=== PATIENT | female | born 1990 | race American Indian/Alaskan Native ===

== ENCOUNTER 2021-11-19 22:08 | Emergency (ER) | payer SELFPAY ==
[2021-11-20] MEDS ORDERED: ZIPRASIDONE MESYLATE 20 MG VIAL IM STA (01:09)
[2021-11-20] MEDS ORDERED: LORazepam 2 MG/ML VIAL IM STA (01:10)
--- NOTE | 2021-11-20 01:14 | Emergency Department Report ---
ED General Adult HPI - General Chief complaint: Psych Stated complaint: ADAM EVAL Time Seen by Provider: 11/20/21 00:10 Source: patient Mode of arrival: Stretcher Limitations: No Limitations - History of Present Illness Initial comments: patient presents 2/[address] [place] [address] [place] talking to herself. Patient refusing to answer any questions here. Patient is combative and refusing lab draws and tests. Unable to obtain any further history @ this time. Unclear if patient has a known hx of psych disorder. - Related Data Allergies Allergy/AdvReac Type Severity Reaction Status Date / Time No Known Allergies Allergy Unverified 11/19/21 23:01 ED Review of Systems ROS: Stated complaint: MH EVAL Other details as noted in HPI Comment: All other systems reviewed and negative Constitutional: denies: see rufino [facility] ED Past Medical Hx - Past Medical History Previous Medical History?: Yes Hx Psychiatric Treatment: Yes Additional medical history: Chronic Pain Left hand - Surgical History Past Surgical History?: Yes Additional Surgical History: Left hand - Social History Smoking Status: Current Every Day Smoker Substance Use Type: None ED Physical Exam - General Limitations: No Limitations General appearance: alert, in no apparent distress - Head Head exam: Present: atraumatic, normocephalic - Eye Eye exam: Present: PERRL, EOMI - ENT ENT exam: Present: mucous membranes moist, other (airway patent) - Neck Neck exam: Present: other (supple; no JVD) - Respiratory Respiratory exam: Present: other (good air entry, nml I:E, CTAB, no use of TRACE) - Cardiovascular Cardiovascular Exam: Present: regular rate. Absent: rubs, gallop - GI/Abdominal GI/Abdominal exam: Present: soft, normal bowel sounds. Absent: distended - Extremities Exam Extremities exam: Present: full ROM. Absent: tenderness - Back Exam Back exam: Present: normal inspection, full ROM - Neurological Exam Neurological exam: Present: alert, other (no gross CN palsies; moviung all extremities equally) - Psychiatric Psychiatric exam: Present: other (animated affect; not answering questions) - Skin Skin exam: Present: normal color. Absent: rash ED Course Vital Signs 11/19/21 11/19/21 11/20/21 22:47 22:52 02:03 Temperature 98.5 F 98 F 98.5 F Pulse Rate 114 H 90 114 H Respiratory 18 18 18 Rate Blood Pressure 128/68 Blood Pressure 117/84 112/73 [Right] O2 Sat by Pulse 97 100 100 Oximetry ED Medical Decision Making - Lab Data Result diagrams: 11/20/21 03:28 11/20/21 03:28 Laboratory Tests 11/20/21 11/20/21 11/20/21 03:28 03:28 03:28 WBC RBC Hgb Hct MCV MCH MCHC RDW Plt Count Lymph % (Auto) [place] % (Auto) Eos % (Auto) Baso % (Auto) Lymph # (Auto) [place] # (Auto) Eos # (Auto) Baso # (Auto) Seg Neutrophils % Seg Neutrophils # Sodium Potassium Chloride Carbon Dioxide Anion Gap BUN Creatinine Estimated GFR BUN/Creatinine Ratio Glucose Calcium Total Bilirubin AST ALT Alkaline Phosphatase Total Protein Albumin Albumin/Globulin Ratio HCG, Qual Salicylates < 0.3 L Acetaminophen 5.0 L Plasma/Serum Alcohol < 0.01 11/20/21 11/20/21 11/20/21 03:28 03:28 03:28 WBC 7.4 RBC 3.32 L Hgb 10.9 Hct 33.0 MCV 99 H MCH 33 H MCHC 33 RDW 13.3 Plt Count 280 Lymph % (Auto) 17.0 [place] % (Auto) 12.4 H Eos % (Auto) 0.1 Baso % (Auto) 0.4 Lymph # (Auto) 1.3 [place] # (Auto) 0.9 H Eos # (Auto) 0.0 Baso # (Auto) 0.0 Seg Neutrophils % 70.1 H Seg Neutrophils # 5.2 Sodium 137 Potassium 3.4 L Chloride 105.1 Carbon Dioxide 14 L Anion Gap 21 BUN 6 L Creatinine 0.5 L Estimated GFR > 60 BUN/Creatinine Ratio 12 Glucose 74 Calcium 8.5 Total Bilirubin 0.30 AST 57 H ALT 25 Alkaline Phosphatase 63 Total Protein 6.7 Albumin 3.9 Albumin/Globulin Ratio 1.4 HCG, Qual Negative Salicylates Acetaminophen Plasma/Serum Alcohol EK, SR, nml AK, narrow QRS, no significant ST changes in contiguous leads UA, U tox, CT head, CXR all pending @ 6:00 am - Medical Decision Making likely 2/2 acute psychosis. Need to r/o recreational drug intoxication and other possible organic causes. Critical care attestation.: If time is entered above; I have spent that time in minutes in the direct care of this critically ill patient, excluding procedure time. ED Disposition Clinical Impression: Altered mental status Qualifiers: Altered mental status type: delirium Qualified Code(s): R41.0 - Disorientation, unspecified Disposition: 30 STILL A PATIENT Is pt being admited?: No Does the pt Need Aspirin: No Condition: Stable Time of Disposition: 06:00 (Patient care transferred to Dr. Bahena (oncoming ER doc). Sign out was given by me to him. )
[2021-11-20 03:55] LABS: Basophils % (Auto) 0.4 % (0.0-1.8); Eosinophils % (Auto) 0.1 % (0.0-4.3); Hemoglobin 10.9 gm/dl (10.1-14.3); Lymphocytes # (Auto) 1.3 K/mm3 (1.2-5.4); Mean Corpuscular HGB Conc 33 % (30-34); Mean Corpuscular Volume 99 fl (79-97); Monocytes # (Auto) 0.9 K/mm3 (0.0-0.8); Monocytes % (Auto) 12.4 % (0.0-7.3); Platelet Count 280 K/mm3 (140-440); Red Blood Count 3.32 M/mm3 (3.65-5.03); Red Cell Distribution Width 13.3 % (13.2-15.2)
[2021-11-20 04:07] LABS: Alanine Aminotransferase 25 units/L (7-56); Albumin 3.9 g/dL (3.9-5); Blood Urea Nitrogen 6 mg/dL (7-17); Calcium 8.5 mg/dL (8.4-10.2); Hemolysis Index 4
[2021-11-20 04:14] LABS: BUN/Creatinine Ratio 12
--- NOTE | 2021-11-20 06:11 | XRay Report ---
CHEST 1 VIEW INDICATION / CLINICAL INFORMATION: AMS. FINDINGS: SUPPORT DEVICES: None. HEART / MEDIASTINUM: No significant abnormality. LUNGS / PLEURA: No significant pulmonary or pleural abnormality. No pneumothorax. ADDITIONAL FINDINGS: No significant additional findings. IMPRESSION: 1. No acute findings. Signer Name: Marcell Walker MD Signed: 11/20/2021 6:07 AM Workstation Name: [email or web address]
--- NOTE | 2021-11-20 08:17 | Consultation ---
History of Present Illness - Reason for Consult Consult date: 11/20/21 Reason for consult: agitation - History of Present Psychiatric Illness HPI: patient presents 2/[place] talking to herself. Patient refusing to answer any questions here. Patient is combative and refusing lab draws and tests. Unable to obtain any further history @ this time. Unclear if patient has a known hx of psych disorder. The patient was seen today. She could not be aroused enough to engage in the evaluation. She is arouses several times by tactile stimulation. She is mumbling incoherently and drifts back out. PAST PSYCHIATRIC HISTORY Unable to assess PAST MEDICAL HISTORY: None reported Family Psychiatric History: None reported or documented SOCIAL HISTORY Unable to assess REVIEW OF SYSTEMS Unable to assess MENTAL STATUS EXAMINATION Unable to assess Assessment and Plan Delusional Disorder Treatment Plan 1013 Will not start any scheduled meds until after CT resulted to r/o underlying medical condtion. Geodon 10mg IM q4h prn agitation Sitter: defer to primary Medical: Per primary Disposition: Recommend acute psychiatric inpatient treatment Will follow. Thanks. Case staffed with Dr. Riddle Medications and Allergies Allergies Allergy/AdvReac Type Severity Reaction Status Date / Time No Known Allergies Allergy Unverified 11/19/21 23:01 Mental Status Exam - Vital signs Last Vital Signs Temp 98.5 F 11/20/21 02:03 Pulse 114 H 11/20/21 02:03 Resp 18 11/20/21 02:03 BP 112/73 11/20/21 02:03 Pulse Ox 100 11/20/21 02:03 Results Result Diagrams: 11/20/21 03:28 11/20/21 03:28 Abnormal lab results 11/20/21 11/20/21 11/20/21 Range/Units 03:28 03:28 03:28 RBC 3.32 L (3.65-5.03) M/mm3 MCV 99 H (79-97) fl MCH 33 H (28-32) pg [place] % (Auto) 12.4 H (0.0-7.3) % [place] # (Auto) 0.9 H (0.0-0.8) K/mm3 Seg Neutrophils % 70.1 H (40.0-70.0) % Potassium (3.6-5.0) mmol/L Carbon Dioxide (22-30) mmol/L BUN (7-17) mg/dL Creatinine (0.6-1.2) mg/dL AST (5-40) units/L Salicylates < 0.3 L (2.8-20.0) mg/dL Acetaminophen 5.0 L (10.0-30.0) ug/mL 11/20/21 Range/Units 03:28 RBC (3.65-5.03) M/mm3 MCV (79-97) fl MCH (28-32) pg [place] % (Auto) (0.0-7.3) % [place] # (Auto) (0.0-0.8) K/mm3 Seg Neutrophils % (40.0-70.0) % Potassium 3.4 L (3.6-5.0) mmol/L Carbon Dioxide 14 L (22-30) mmol/L BUN 6 L (7-17) mg/dL Creatinine 0.5 L (0.6-1.2) mg/dL AST 57 H (5-40) units/L Salicylates (2.8-20.0) mg/dL Acetaminophen (10.0-30.0) ug/mL All other labs normal.
[2021-11-20] MEDS ORDERED: ZIPRASIDONE MESYLATE 20 MG VIAL IM PRN (09:00)
--- NOTE | 2021-11-20 10:26 | Electrocardiograph Report ---
[facility] Test Date: 2021-11-20 Test Time: 04:30:30 Pat Name: RAND DSOUZA Department: Room: Gender: F Environmental Health And Safety Manager: NURSE : 1990 Requested By: MINOO ARANGO Order Number: [id number] Reading MD: [place] Palacios Measurements Intervals [place] Rate: 100 P: 75 [place]: 109 QRS: 84 QRSD: 68 T: 49 QT: 350 QTc: 450 Interpretive Statements Sinus tachycardia No previous ECG available for comparison Electronically Signed On 11-20-2021 10:25:50 EDT by Salinas Palacios
--- NOTE | 2021-11-20 10:54 | Cat Scan Report ---
CT HEAD WITHOUT CONTRAST INDICATION / CLINICAL INFORMATION: Altered mental status.. TECHNIQUE: Axial imaging performed from the skull apex through the skull base without the use of cont rast. Sagittal and coronal reformatted images. All CT scans at this location are performed using CT dose reduction for ALARA by means of automated exposure control. COMPARISON: None available. FINDINGS: CEREBRAL PARENCHYMA: No significant abnormality. No acute territorial infarct. HEMORRHAGE: None. EXTRA-AXIAL SPACES: Normal in size and morphology for the patient's age. VENTRICULAR SYSTEM: Normal in size and morphology for the patient's age. MIDLINE SHIFT OR HERNIATION: None. CEREBELLUM / BRAINSTEM: No significant abnormality. CALVARIUM: No significant abnormality. ORBITS: Normal as visualized. PARANASAL SINUSES / MASTOID AIR CELLS: Normal as visualized. SOFT TISSUES of HEAD: No significant abnormality. ADDITIONAL FINDINGS: None. IMPRESSION: No acute intracranial abnormality. Signer Name: Kieran Nevarez Jr, MD Signed: 11/20/2021 10:50 AM Workstation Name: [id number]
--- NOTE | 2021-11-20 12:29 | Event Note ---
Date: 11/20/21 Psychiatrically the patient continues to be noncooperative. There are no significant events overnight her vital signs remained stable and she had no complaints. We will continue to monitor medically while awaiting for psychiatric disposition.
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
[2021-11-21 08:58] VITALS: BP 113/71
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
== END 2021-11-21 12:43 | disposition home or self-care (01) ==
LOC: ED 22:08 → EEVIPCON 22:08 → ED 11-21 12:43
DX: R41.82 Altered mental status, unspecified (principal); F17.200 Nicotine dependence, unspecified, uncomplicated; Z20.822 Contact with and (suspected) exposure to COVID-19
CPT/HCPCS: 36415; 70450; 71045; 73110; 80053; 84703; 85025; 93005; 96372; 99285; J2060; J3486; U0003; 80320; 99284; G0480